=== PATIENT | female | born 1985 | race Caucasian/White ===

== ENCOUNTER 2021-01-13 17:12 | Emergency (ER) | payer BC ==
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
[2021-01-13] MEDS: Sodium Chloride 0.9% 10 ML Syringe FLUSH PRN ×2 (18:32→20:43)
[2021-01-13] MEDS ORDERED: Iopamidol 612 MG/ML 100 ML Bottle IVPUSH ONE (20:40)
[2021-01-13] MEDS ORDERED: Sodium Chloride 0.9% 10 ML SDV FLUSH ONE (20:40)
[2021-01-13] MEDS ORDERED: Diatrizoate Meglumine/Diatrizoate Sodium 37% 120 ML Bottle PO ONE (20:40)
--- NOTE | 2021-01-13 21:05 | CT ---
CT abdomen and pelvis Technique: Multiple axial sections were obtained from above the dome of the diaphragm inferiorly through the pubic symphysis. Intravenous and oral contrast were utilized. Delayed images were also obtained through the bladder. Reconstructed coronal and sagittal images were obtained. Comparison: No prior abdomen or pelvis imaging is available. Findings: Visualized lung bases show nothing acute. Hyperenhancing lesion is seen within the upper right lobe of the liver measuring 2.0 cm. Second slightly hyperenhancing lesion is also noted within the upper right lobe of the liver measuring 2.5 cm. Liver is otherwise unremarkable. Spleen size is normal. Adrenal glands show no nodule. Pancreas appears within normal limits. Gallbladder contains no calcified gallstones. Adrenal glands show no nodule. Kidneys show symmetric contrast enhancement with no hydronephrosis or mass. Abdominal aorta shows no aneurysm. No retroperitoneal adenopathy or mesenteric abnormalities are seen. Appendix is seen which is normal. No pelvic mass or adenopathy is seen. IUD is present within the uterus. No free fluid or inflammatory change is seen. Bone window settings were reviewed which show no acute osseous abnormality. Impression: 1. Two hyperenhancing lesions within the upper right lobe of the liver. These are most likely benign but recommend MRI without and with contrast to further evaluate. 2. Patient has a normal placed IUD. 3. No additional abnormality is identified on CT study of the abdomen and pelvis. Diagnostic code #3
== END 2021-01-13 21:35 | disposition home or self-care (01) ==
LOC: JD.ED 17:12
DX: R10.31 Right lower quadrant pain (principal); Z91.048 Other nonmedicinal substance allergy status; Z91.040 Latex allergy status; Z86.16 Personal history of COVID-19
CPT/HCPCS: 36415; 74177; 80053; 81003; 81025; 85025; 86140; 99284; Q9963; Q9967

== ENCOUNTER 2024-02-03 06:15 | Day surgery (SDC) | payer BC ==
[~2024-02-03 06:15] MED LIST: Sodium Chloride 0.9% 10 ML Syringe FLUSH PRN; Sodium Chloride 0.9% 10 ML Syringe FLUSH SCH
[2024-02-03 06:40] LABS: BASOPHILS ABSOLUTE AUTO 0.1 K/mm3 (0.0-0.2); BASOPHILS PERCENT AUTO 0.8 % (0.0-1.0); EOSINOPHILS ABSOLUTE AUTO 0.2 K/mm3 (0.0-0.4); EOSINOPHILS PERCENT AUTO 2.7 % (0.0-6.0); HEMATOCRIT 38.2 % (37.0-47.0); HEMOGLOBIN 12.9 gm/dl (12.0-16.0); IMMATURE GRAN ABSOLUTE AUTO 0.02 K/mm3 (0.00-0.05); IMMATURE GRAN PERCENT AUTO 0.3 % (0.0-0.4); LYMPHOCYTES ABSOLUTE AUTO 3.3 K/mm3 (1.0-4.8); LYMPHOCYTES PERCENT AUTO 42.5 % (24.0-44.0); MEAN CORPUSCULAR HEMOGLOBIN 30.1 pg (28.0-32.0); MEAN CORPUSCULAR HGB CONC 33.8 g/dl (32.0-36.0); MEAN PLATELET VOLUME 9.4 fl (9.4-12.3); MONOCYTES ABSOLUTE AUTO 0.7 K/mm3 (0.0-0.8); MONOCYTES PERCENT AUTO 8.7 % (0.0-8.0); NEUTROPHILS ABSOLUTE AUTO 3.5 K/mm3 (1.8-7.7); PLATELET COUNT,PLT 268 K/mm3 (150-400); RED BLOOD CELL COUNT 4.29 M/mm3 (4.10-5.30); WHITE BLOOD CELL COUNT,WBC 7.67 K/mm3 (3.9-11.3)
[2024-02-03] MEDS ORDERED: Ondansetron 4 MG/2 ML SDV ONE (06:40)
[2024-02-03] MEDS ORDERED: Lidocaine 1% 5 ML VIAL ONE (06:40)
[2024-02-03] MEDS ORDERED: Rocuronium 50 MG/5 ML Vial ONE (06:40)
[2024-02-03] MEDS ORDERED: Dexamethasone 4 MG/ML 5 ML MDV ONE (06:41)
[2024-02-03] MEDS ORDERED: Midazolam 1 MG/ML 2 ML SDV ONE (06:41)
[2024-02-03] MEDS ORDERED: Propofol 200 MG/20 ML SDV ONE (06:41)
[2024-02-03] MEDS ORDERED: fentaNYL 250 MCG/5 ML SDV ONE (06:41)
[2024-02-03] MEDS ORDERED: dexmedeTOMIDine HCl 200 MCG/2 ML SDV ONE (06:44)
[2024-02-03] MEDS: Lactated Ringers 1,000 ML IV SCH (06:45)
[2024-02-03] MEDS ORDERED: ceFAZolin 2 GM Vial ONE (06:56)
[2024-02-03 07:00] LABS: ANION GAP 14.5 (5-15); BUN/CREATININE RATIO 21.3 (14-18); CREATININE 0.8 mg/dL (0.55-1.02); EST CRCL DRUG DOSING (CG) 73.36 mL/min; POTASSIUM,K 3.5 mEq/L (3.5-5.1)
[2024-02-03] MEDS ORDERED: Ondansetron 4 MG/2 ML SDV IVPUSH PRN (07:06)
[2024-02-03] MEDS ORDERED: droPERidol 5 MG/2 ML SDV IVPUSH PRN (07:06)
[2024-02-03] MEDS ORDERED: HYDROmorphone 0.5 MG/0.5 ML Syringe ONE (07:54)
[2024-02-03] MEDS: Bupivacaine 0.5% 10 ML SDV ONE (07:56)
[2024-02-03] MEDS ORDERED: Lactated Ringers 1,000 ML ONE (08:11)
[2024-02-03] MEDS ORDERED: Ketorolac 30 MG/ML SDV ONE (08:12)
[2024-02-03] MEDS: Bupivacaine 0.25% 10 ML SDV ONE (08:15)
[2024-02-03] MEDS: EPINEPHrine 1 MG/ML SDV ONE (08:15)
[2024-02-03] MEDS ORDERED: Neostigmine Methylsulfate 10 MG/10 ML MDV ONE (08:33)
[2024-02-03] MEDS ORDERED: Acetaminophen/oxyCODONE 325-5 MG Tab PO PRN (09:20)
[2024-02-03] MEDS: HYDROmorphone 0.5 MG/0.5 ML Syringe IVPUSH PRN (09:24)
[2024-02-03] MEDS: fentaNYL 100 MCG/2 ML SDV IVPUSH PRN (09:37)
[2024-02-03] MEDS: Acetaminophen/HYDROcodone 325-5 MG Tab PO PRN (11:53)
== END 2024-02-03 13:05 | disposition home or self-care (01) ==
LOC: JD.SDS 06:15
PROVIDERS: ATTEND Obstetrics & Gynecology
DX: N80.03 Adenomyosis of the uterus (principal); N83.8 Other noninflammatory disorders of ovary, fallopian tube and broad ligament; N72 Inflammatory disease of cervix uteri; J45.909 Unspecified asthma, uncomplicated
CPT/HCPCS: 36415; 58552; 80048; 81025; 85025; 86850; 86900; 86901; A9270; J0171; J0665; J0690; J1100; J1171; J1885; J2250; J2405; J2704; J2710; J3010; J3490; J7120; 00944